=== PATIENT | male | born 1975 | race African-American/Black ===

== ENCOUNTER 2020-11-01 11:16 | Emergency (ER) | payer OTHER ==
[~2020-11-01] VITALS: Ht 170.2 cm; Wt 95.3 kg
[2020-11-01] MEDS ORDERED: DOXYCYCLINE 10100 MG PO (14:45)
[2020-11-01] MEDS ORDERED: TESSALON PERLE100 MG PO (14:45)
[2020-11-01] MEDS ORDERED: ONDANSETRON ODT4 MG PO (14:45)
[2020-11-01] MEDS ORDERED: APAP W/CODEINE1 TA2 PO (14:45)
[2020-11-01 15:07] VITALS: BP 130/82
== END 2020-11-01 15:11 | disposition home or self-care (01) ==
LOC: M.ERS 11:16
DX: R06.02 Shortness of breath (principal); R05 Cough; M79.10 Myalgia, unspecified site; Z20.822 Contact with and (suspected) exposure to COVID-19